=== PATIENT | female | born 1970 | race Caucasian/White ===

== ENCOUNTER 2017-05-12 15:56 | Emergency (ER) | payer OTHER ==
[2017-05-12 16:03] VITALS: RESP 16; TEMP 98.2
[2017-05-12] MEDS ORDERED: NS 500 ML IV ONE (16:06)
[2017-05-12 16:22] LABS: % IMMATURE GRANULYOCYTES 0.2 % (0.0-1.1); ABSOLUTE IMMATURE GRANULOCYTES 0.01 10^3/uL (0.00-0.10); ADD DIFF? NO; ADD MORPH? NO; ADD SCAN? NO; ATYPICAL LYMPHOCYTE FLAG 10 (0-99); FRAGMENT RBC FLAG 20 (0-99); HEMATOCRIT 43.4 % (38.0-47.0); HEMOGLOBIN 15.5 g/dL (12.6-16.3); LEFT SHIFT FLG 0 (0-99); LIPEMIA HEMOLYSIS FLAG 90 (0-99); MEAN CELL HEMOGLOBIN 33.2 pg (27.9-34.1); MEAN CELL HEMOGLOBIN CONCENTR. 35.7 g/dL (32.4-36.7); MEAN CELL VOLUME 92.9 fL (81.5-99.8); MEAN PLATELET VOLUME 10.5 fL (8.7-11.7); PLATELET CLUMPS FLAG 20 (0-99); PLATELET COUNT 208 10^3/uL (150-400); RED BLOOD CELL COUNT 4.67 10^6/uL (4.18-5.33); RED CELL DISTRIBUTION WIDTH 12.1 % (11.5-15.2)
--- NOTE | 2017-05-12 16:25 | CPEKG ---
Heart Rate: 64 RR Interval: 938 P-R Interval: 160 QRSD Interval: 72 QT Interval: 404 QTC Interval: 417 P Spur: 57 QRS Spur: 87 T Wave Spur: 52 EKG Severity - ABNORMAL ECG - EKG Impression: SINUS RHYTHM EKG Impression: CONSIDER LEFT VENTRICULAR HYPERTROPHY Electronically Signed By: Claudia Mcdaniels 12-May-2017 20:36:44
[2017-05-12 16:30] LABS: APTT 26.7 SEC (23.0-38.0); INR 1.12 (0.83-1.16); PROTIME(PATIENT) 14.3 SEC (12.0-15.0)
[2017-05-12 16:37] LABS: ANION GAP 16 mEq/L (8-16); CALCIUM 9.6 mg/dL (8.5-10.4); CARBON DIOXIDE 26 mEq/l (22-31); CHLORIDE 97 mEq/L (97-110); CREATININE 0.8 mg/dL (0.6-1.0); GLOMERULAR FILTRATION RATE > 60; GLUCOSE 95 mg/dL (70-100); POTASSIUM 3.7 mEq/L (3.5-5.2); SODIUM 139 mEq/L (134-144)
[2017-05-12 16:46] LABS: CK-MB INTERPRETATION NEGATIVE (NEGATIVE); CREATINE KINASE-MB FRACTION 3.09 ng/mL (0.00-3.19)
[2017-05-12 16:50] LABS: TROPONIN I 0.031 ng/mL (0.000-0.034)
--- NOTE | 2017-05-12 17:21 | EDPHY ---
H & P Time Seen by Provider: 05/12/17 16:06 HPI/ROS: HPI Chest discomfort. 46-year-old female by private vehicle. This patient reports that she has had discomfort described as a low level tightness and pressure across her chest since Thursday. She exercises and runs on a regular basis. She reports that with this discomfort she has felt some shortness of breath as well. She reports that it has been constant and a low level since Thursday. She denies any history of coronary artery disease. No significant family history. She has no history of diabetes, hypertension, hyperlipidemia. She does not smoke. No methamphetamine or drug abuse. ROS: Constitutional: No fever, no chills. No weakness. Eyes: No discharge. No changes in vision. ENT: No sore throat. No nasal congestion or rhinorrhea. Respiratory: No cough. As above. Cardiac: As above, no palpitations. Gastrointestinal: No abdominal pain, no vomiting, no diarrhea. Genitourinary: No hematuria. No dysuria or increased frequency with urination. Musculoskeletal: No back pain. No neck pain. No myalgias or arthralgias. Skin: No rashes. Neurological: No headache. No focal weakness or altered sensation. Past medical history: Depression. She otherwise denies any significant past medical history. Social history: Nonsmoker. No alcohol. Here by herself. Physical Exam: General Appearance: Alert, no distress. This patient is responding to questions appropriately and in full sentences. This patient appears well- hydrated and well-nourished. Eyes: Pupils equal and round no pallor or injection. No lid edema, erythema or injection. Respiratory: There are no retractions, lungs are clear to auscultation with good air movement bilaterally. Cardiovascular: Regular rate and rhythm. No murmur. Gastrointestinal: Abdomen is soft and nontender, no masses, bowel sounds normal. No focal tenderness at McBurney's point. No Ayala sign. Neurological: Motor sensory function is grossly intact. Cranial nerves are normal. Gait is normal. Skin: Warm and dry, no rashes. Musculoskeletal: Neck is supple and nontender. Extremities are symmetrical. All joints range without pain or impingement. Psychiatric: No agitation. No depression. Database: EKG: EKG time is 4:22 p.m.; EKG shows a narrow complex normal sinus rhythm with a ventricular rate of 64. Probable left ventricular hypertrophy. The WI, QRS, QT intervals are within normal limits. There are no ST-T wave changes indicative of ischemic or injury pattern. No evidence of right heart strain. Interpreted by me. Imaging: Chest x-ray AP portable; the cardiac mediastinal silhouette is unremarkable. No evidence of infiltrate or pneumothorax. No acute cardiopulmonary disease process noted. Interpreted by me. Procedures: Emergency department course: IV placed. Her vital signs were reviewed and are normal. EKG obtained and reviewed by myself. She was given 324 mg of chewed aspirin. 5:10 p.m., patient re-evaluated. Resting comfortably at this time. She denies any significant chest pain. Results of her blood work, EKG and chest x-ray discussed with her. I discussed admission for observation and further evaluation. She declines this. She is requesting discharge. Plan will be to have her follow up with [facility] for provocative testing and echocardiogram. She will call tomorrow morning for appointment time. Return to emergency department precautions reviewed thoroughly with her. All of her questions were answered. She was discharged in good condition. Differential Diagnosis: The differential diagnosis on this patient includes but is not limited to pleurisy, costal chondritis, esophageal spasm, anxiety reaction. Pulmonary embolism, acute coronary syndrome, myocarditis, pericarditis, aortic dissection unlikely. This represents a partial list of diagnoses considered. These considerations are based on history, physical exam, past history, reassessment and diagnostic testing. Smoking Status: Never smoked Constitutional: Initial Vital Signs Temperature (C) 36.8 C 05/12/17 16:00 Heart Rate 66 05/12/17 16:00 Respiratory Rate 16 05/12/17 16:00 Blood Pressure 134/80 H 05/12/17 16:00 O2 Sat (%) 98 05/12/17 16:00 O2 Delivery Mode Room Air Allergies/Adverse Reactions: No Known Allergies Allergy (Verified 05/12/17 16:00) Home Medications: Medication Instructions Recorded Plaquenil 200 mg (RX) 02/19/14 Medical Decision Making - Diagnostics Imaging Results: Imaging Impressions Chest X-Ray 05/12/17 16:07 Impression: No acute cardiopulmonary features. - Data Points Laboratory Results: Laboratory Results 05/12/17 16:12 05/12/17 16:12 05/12/17 05/12/17 05/12/17 16:12 16:12 16:12 WBC 6.45 10^3/uL 10^3/uL (3.80-9.50) RBC 4.67 10^6/uL 10^6/uL (4.18-5.33) Hgb 15.5 g/dL g/dL (12.6-16.3) Hct 43.4 % % (38.0-47.0) MCV 92.9 fL fL (81.5-99.8) MCH 33.2 pg pg (27.9-34.1) MCHC 35.7 g/dL g/dL (32.4-36.7) RDW 12.1 % % (11.5-15.2) Plt Count 208 10^3/uL 10^3/uL (150-400) MPV 10.5 fL fL (8.7-11.7) Neut % (Auto) 58.6 % % (39.3-74.2) Lymph % (Auto) 30.7 % % (15.0-45.0) [place] % (Auto) 7.4 % % (4.5-13.0) Eos % (Auto) 2.2 % % (0.6-7.6) Baso % (Auto) 0.9 % % (0.3-1.7) Nucleat RBC Rel Count 0.0 % % (0.0-0.2) Absolute Neuts (auto) 3.78 10^3/uL 10^3/uL (1.70-6.50) Absolute Lymphs (auto) 1.98 10^3/uL 10^3/uL (1.00-3.00) Absolute Monos (auto) 0.48 10^3/uL 10^3/uL (0.30-0.80) Absolute Eos (auto) 0.14 10^3/uL 10^3/uL (0.03-0.40) Absolute Basos (auto) 0.06 10^3/uL 10^3/uL (0.02-0.10) Absolute Nucleated RBC 0.00 10^3/uL 10^3/uL (0-0.01) Immature Gran % 0.2 % % (0.0-1.1) Immature Gran # 0.01 10^3/uL 10^3/uL (0.00-0.10) PT 14.3 SEC SEC (12.0-15.0) INR 1.12 (0.83-1.16) APTT 26.7 SEC SEC (23.0-38.0) D-Dimer < 0.27 ug/mLFEU ug/mLFEU (0.00-0.50) Sodium 139 mEq/L mEq/L (134-144) Potassium 3.7 mEq/L mEq/L (3.5-5.2) Chloride 97 mEq/L mEq/L (97-110) Carbon Dioxide 26 mEq/l mEq/l (22-31) Anion Gap 16 mEq/L mEq/L (8-16) BUN 15 mg/dL mg/dL (7-23) Creatinine 0.8 mg/dL mg/dL (0.6-1.0) Estimated GFR > 60 Glucose 95 mg/dL mg/dL (70-100) Calcium 9.6 mg/dL mg/dL (8.5-10.4) Creatine Kinase 262 IU/L H IU/L (0-156) CK-MB (CK-2) Fraction 3.09 ng/mL ng/mL (0.00-3.19) CK-MB (CK-2) % 1.2 % % (0.0-4.0) Creatine Kinase Interp NEGATIVE (NEGATIVE) Troponin I 0.031 ng/mL ng/mL (0.000-0.034) NT-Pro-B Natriuret Pep 43 pg/mL pg/mL (0-125) Medications Given: Discontinued Medications Sodium Chloride (Ns) 500 mls @ 1,000 mls/hr IV EDNOW ONE PRN Reason: Protocol Stop: 05/12/17 16:35 Last Admin: 05/12/17 16:54 Dose: 500 mls Departure - Departure Disposition: Home, Routine, Self-Care Clinical Impression: Chest discomfort Condition: Good Instructions: Chest Pain (ED) Additional Instructions: Read and follow provided instructions. Follow-up with Dr. Adan Almodovar with [facility] or 1 of his partners within the next 2 days for re-evaluation, stress test and echocardiogram. Call their office at 9:00 a.m. tomorrow morning. Explain this is for an emergency department follow-up to further evaluate your chest discomfort. No strenuous activity until you have been cleared by Cardiology as discussed. Return to the emergency department for worsening chest pain, worsening shortness of breath or other serious concerns. Referrals: Adan Almodovar MD [Medical Doctor] - As per Instructions
[2017-05-12 17:33] VITALS: BP 118/78; PULSE 58; O2SAT 100
== END 2017-05-12 17:32 | disposition home or self-care (01) ==
DX: R07.89 Other chest pain (principal); E86.9 Volume depletion, unspecified

== ENCOUNTER → 2017-08-18 | Outpatient (CLI) | payer OTHER | LOC: FIMAGING 09:15 | PROVIDERS: ATTEND Nurse Practitioner Women's Health | DX: Z12.31 Encounter for screening mammogram for malignant neoplasm of breast (principal) ==

== ENCOUNTER → 2018-05-04 | Outpatient (CLI) | payer OTHER ==
--- NOTE | 2018-05-04 16:02 | ECHO ---
[email or web address] [address] [address] Main: [phone] Fax: Transthoracic Echocardiogram Name: JING RAIN MR#: [id number] Study Date: 05/04/2018 Study Time: 01:47 PM Date of : 1970 Age: 47 year(s) Height: 188 cm (74 in.) Weight: 72.58 kg (160 lb.) BSA: 1.98 m2 Gender: Female Examination: Echo Indication: Chest Pain, Shortness of breath Image Quality: Contrast: Requested by: Bernard Leigh BP: 110 mmHg/58 mmHg Heart Rate: Rhythm: Normal sinus rhythm Indication: Chest Pain, Shortness of breath Procedure Staff Fuel Manager: Shay Renae RDCS Reading Physician: Adan Slaughter MD Requesting Provider: Conclusions: Normal size left ventricle. No LV hypertrophy. Normal global systolic LV function. EF is 67 %. Normal diastolic LV function. The mitral valve is normal in appearance and function. The aortic valve is normal in appearance and function. Measurements: Chambers Valvular Assessment AV/MV Valvular Assessment TV/PV Normal Normal Normal Name Value Range Name Value Range Name Value Range Ao Haley (MM): 3.0 cm (2.2 cm-3.7 AV Vmax: 1.57 m/s (1 m/s-1.7 TR Vmax: 2.55 mm/s ( - ) cm) m/s) TR PGmax: 26 mmHg ( - ) IVSd (2D): 0.8 cm (0.6 cm-1.1 AV maxP mmHg ( - ) syst. PAP: 31 mmHg ( - ) cm) LVOT Vmax: 1.10 m/s (0.7 m/s-1.1 LVDd (2D): 4.8 cm (3.9 cm-5.3 m/s) cm) MV E Vmax: 0.94 m/s ( - ) LVDs (2D): 3.0 cm (2.1 cm-4 MV A Vmax: 0.80 m/s ( - ) cm) MV E/A: 1.17 ( - ) LVPWd (2D): 0.9 cm ( - ) LVEF (2D): 67 (>=54 %) Continued Measurements: Chambers Valvular Assessment AV/MV Valvular Assessment TV/PV Name Value Name Value Name Value LADs Lon.0 cm MV E' Septal: 0.13 m/s CVP (est.): 5 mmHg LA Area: 12.4 cm2 MV E/E' Septal: 7.00 Patient: JING RAIN Study Date: 05/04/2018 Page 1 of 2 01:47 PM MV E/E' Lateral: 6.00 Findings: Left Ventricle: Normal size left ventricle. No LV hypertrophy. Normal global systolic LV function. EF is 67 %. No regional wall motion abnormality. Normal diastolic LV function. Right Ventricle: Normal size right ventricle. Left Atrium: The left atrium is normal in size. Right Atrium: The right atrium is normal in size. Mitral Valve: The mitral valve is normal in appearance and function. Aortic Valve: The aortic valve is normal in appearance and function. Tricuspid Valve: The tricuspid valve is normal in appearance and function. Pulmonic Valve: The pulmonic valve is normal in appearance and function. Aorta: The aorta is normal. Pericardium: No pericardial effusion. (No Signature Object) Patient: JING RAIN Study Date: 05/04/2018 Page 2 of 2 01:47 PM [id number]
== END ==
LOC: FCP 13:49
PROVIDERS: ATTEND Internal Medicine
DX: R06.02 Shortness of breath (principal); R07.9 Chest pain, unspecified